=== PATIENT | female | born 1985 | race African-American/Black ===

== ENCOUNTER 2022-11-03 00:19 | Inpatient (IN) ==
[2022-11-03] MEDS ORDERED: LORazepam 2 MG/1 ML VIAL IV STA (00:31)
--- NOTE | 2022-11-03 00:41 | Emergency Department Note ---
History of Present Illness General Chief complaint: Hypertension Stated complaint: HIGH BLOOD PRESSURE Time Seen by Provider: 11/03/22 00:25 History of Present Illness Maximum Pain Intensity: 5 This 37-year-old female who has a history of hypertension that was just here yesterday presents back to the ER for worsening blood pressure headache blurry vision and chest pain tonight. Patient did just receive news that she had a family member . Patient denies localized weakness, numbness, tingling, difficulty ambulating. She is answering questions appropriately but slow. No alcohol use today per family. Home Medications Medication Instructions Recorded Confirmed Type chlorthalidone 25 mg tablet 25 mg PO DAILY 08/23/19 11/03/22 History irbesartan 75 mg tablet 75 mg PO DAILY 11/03/22 11/03/22 History Allergies Allergy/AdvReac Type Severity Reaction Status Date / Time shrimp Allergy Severe "SWELL UP" Verified 11/03/22 01:41 morphine Allergy Intermediate HIVES Verified 11/03/22 01:41 mushroom Allergy Intermediate HIVES Verified 11/03/22 01:41 Past Med/Surg History Medical History Hypertension Marijuana use Migraine headache Surgical History History of hysterectomy Social History Smoking Status: Never smoker Preferred Language: Guatemalan Feels Safe at Home: Yes Review of Systems A total of 10 systems reviewed and were otherwise negative Physical Exam Vital Signs Vital Signs - 24 hr 11/03/22 00:22 11/03/22 01:18 11/03/22 02:02 Temperature 36.3 C L Temperature Source Temporal Artery Scan Pulse Rate 68 Pulse Rate [Apical] 67 67 Respiratory Rate 20 16 16 Respiratory Effort / Characteristics Non-Labored Non-Labored Spontaneous Non-Labored Spontaneous Respiratory Depth Normal Normal Normal Respiratory Pattern Regular Regular Blood Pressure 194/128 H Blood Pressure [Right Arm] 139/98 127/80 Blood Pressure Mean 150 Blood Pressure Mean [Right Arm] 111 95 Pulse Oximetry 100 99 99 Oxygen Delivery Method Room Air Room Air Room Air Sepsis Recent Fever Within 48 Hours No Sepsis New/Unexplained Change in Mental Status N/A Sepsis Action Taken by Nursing No Action Required VITALS: Vitals are noted on the nurse's note and reviewed by myself. Vital signs hypertensive. GENERAL: Pleasant female who appears upset following commands, in no acute distress, nondiaphoretic, well-developed well-nourished. SKIN: The skin was without rashes, erythema, edema, or bruising. There is no tenting of the skin. Capillary reflex less than 2 seconds. HEAD: Normocephalic atraumatic. EARS: External auditory canals clear, tympanic membranes pearly briceño without erythema or effusion bilaterally. EYES: Pupils equal round and reactive to light and accommodation. Conjunctivae without injection, sclerae without icterus. Extraocular movements intact. NOSE: Patent, turbinates without inflammation or discharge. No sinus tenderness. MOUTH: Mucous membranes moist. Pharynx without erythema or exudate. Uvula midline. Airway patent. Tongue does not deviate. NECK: Supple without nuchal rigidity. No lymphadenopathy. No thyromegaly. Cervical spine is nontender. No JVD. HEART: Regular rate and rhythm LUNGS: Clear to auscultation bilaterally without wheezes, rales or rhonchi. No retractions or accessory muscle use. ABDOMEN: Positive bowel sounds x 4. Normal tympanic percussion. Soft, nontender, without masses or organomegaly. Doss sign negative. No guarding or rebound tenderness. No CVA tenderness MUSCULOSKELETAL: No muscle atrophy, erythema, or edema noted. NEURO: Patient was alert and oriented to person place and time. Normal sensation to light and sharp touch. Cranial nerves II through XII grossly in tact. No pronator drift. Cerebellar exam intact. No focal neurological deficits. Course Administered Medications Discontinued Medications Ioversol (Optiray 320 500ml) 112 ml IV ONCE ONE Stop: 11/03/22 01:11 Last Admin: 11/03/22 01:02 Dose: 112 ml Documented By: JAYME Lorazepam (Lorazepam 2 Mg/1 Ml Vial) 1 mg IV NOW STA Stop: 11/03/22 00:32 Last Admin: 11/03/22 01:30 Dose: 1 mg Documented By: MED Medical Decision Making Medical Records Attestation: I reviewed the patient's medical records. Home Medications Current Medication List: was personally reviewed by me Laboratory Data Attestation: I reviewed the patient's lab results. 11/03/22 00:40 11/03/22 00:40 Lab Results 11/03/22 11/03/22 11/03/22 Range/Units 00:40 00:40 00:40 WBC 7.60 (4.8-10.8) K/ul RBC 4.55 (4.20-5.40) M/uL Hgb 12.8 (12.0-16.0) g/dl POC Hgb (12.0-16.0) g/dl Hct 37.5 (37.0-47.0) % POC Hct (37-47) % MCV 82.4 (80.0-100.0) fL MCH 28.1 (25.0-34.0) pg MCHC 34.1 (32.0-36.0) g/dL RDW Std Deviation 40.7 (36.4-46.3) fL RDW Coeff of Peggy 13.6 (11.5-14.5) % Plt Count 324 (130-400) K/uL MPV 9.6 (9.4-12.4) fL Immature Gran % (Auto) 0.1 % Neut % (Auto) 38.4 % Lymph % (Auto) 52.8 % Weber % (Auto) 5.7 % Eos % (Auto) 2.5 % Baso % (Auto) 0.5 % Neut # (Auto) 2.92 (1.40-6.50) K/uL Lymph # (Auto) 4.01 H (1.2-3.4) K/uL Weber # (Auto) 0.43 (0.11-0.59) K/uL Eos # (Auto) 0.19 (0-0.50) K/uL Baso # (Auto) 0.04 (0-0.2) K/uL Immature Gran # (Auto) 0.01 (0.01-0.20) K/uL PT 10.3 (9.0-12.0) Seconds INR 1.0 (0.9-1.1) APTT 28.3 (21.0-31.0) Seconds PTT Ratio 1.0 POC Sodium (135-144) mmol/L Sodium 138 (136-145) mmol/L POC Potassium (3.3-5.0) mmol/L Potassium 3.5 (3.5-5.1) mmol/L POC Chloride (101-112) mmol/L Chloride 105 (98-107) mmol/L Carbon Dioxide 26 (21-32) mmol/L POC Total CO2 (24-31) mmol/L Anion Gap 7 (3-11) POC Anion Gap (16-25) mmol/L POC BUN (7-18) mg/dl BUN 10 (6-23) mg/dl Creatinine 0.82 (0.6-1.2) mg/dl POC Creatinine (0.6-1.3) mg/dl Est Cr Clr Drug Dosing 122.1 ml/min Est GFR ( Amer) 104.5 ml/min Est GFR (Non-Af Amer) 90.1 ml/min BUN/Creatinine Ratio 12.2 (10-20) Glucose 108 H (70-99(Fasting)) mg/dl POC Glucose (other) (70-99) mg/dl Calcium 9.4 (8.6-10.3) mg/dl POC Ioniz Calcium Ny (1.12-1.32) mmol/l Magnesium 1.9 (1.7-2.4) mg/dl Total Bilirubin 0.4 (0.2-1.0) mg/dl AST 29 (13-39) U/L ALT 25 (7-52) U/L Alkaline Phosphatase 65 (34-104) U/L Troponin I High Sens 4.2 (0-14) pg/ml Total Protein 8.4 H (6.0-8.3) gm/dl Albumin 4.4 (3.4-5.0) gm/dl Globulin 4.0 (2.5-4.0) gm/dl Albumin/Globulin Ratio 1.1 (0.9-2) HCG, Qual (Negative) SARS-CoV-2, RNA, NAAT (NEGATIVE) 11/03/22 11/03/22 11/03/22 Range/Units 00:40 00:50 01:20 WBC (4.8-10.8) K/ul RBC (4.20-5.40) M/uL Hgb (12.0-16.0) g/dl POC Hgb 13.3 (12.0-16.0) g/dl Hct (37.0-47.0) % POC Hct 39 (37-47) % MCV (80.0-100.0) fL MCH (25.0-34.0) pg MCHC (32.0-36.0) g/dL RDW Std Deviation (36.4-46.3) fL RDW Coeff of Peggy (11.5-14.5) % Plt Count (130-400) K/uL MPV (9.4-12.4) fL Immature Gran % (Auto) % Neut % (Auto) % Lymph % (Auto) % Weber % (Auto) % Eos % (Auto) % Baso % (Auto) % Neut # (Auto) (1.40-6.50) K/uL Lymph # (Auto) (1.2-3.4) K/uL Weber # (Auto) (0.11-0.59) K/uL Eos # (Auto) (0-0.50) K/uL Baso # (Auto) (0-0.2) K/uL Immature Gran # (Auto) (0.01-0.20) K/uL PT (9.0-12.0) Seconds INR (0.9-1.1) APTT (21.0-31.0) Seconds PTT Ratio POC Sodium 141 (135-144) mmol/L Sodium (136-145) mmol/L POC Potassium 3.5 (3.3-5.0) mmol/L Potassium (3.5-5.1) mmol/L POC Chloride 102 (101-112) mmol/L Chloride (98-107) mmol/L Carbon Dioxide (21-32) mmol/L POC Total CO2 25 (24-31) mmol/L Anion Gap (3-11) POC Anion Gap 18.0 (16-25) mmol/L POC BUN 9 (7-18) mg/dl BUN (6-23) mg/dl Creatinine (0.6-1.2) mg/dl POC Creatinine 0.8 (0.6-1.3) mg/dl Est Cr Clr Drug Dosing ml/min Est GFR ( Amer) ml/min Est GFR (Non-Af Amer) ml/min BUN/Creatinine Ratio (10-20) Glucose (70-99(Fasting)) mg/dl POC Glucose (other) 111 H (70-99) mg/dl Calcium (8.6-10.3) mg/dl POC Ioniz Calcium Ny 1.19 (1.12-1.32) mmol/l Magnesium (1.7-2.4) mg/dl Total Bilirubin (0.2-1.0) mg/dl AST (13-39) U/L ALT (7-52) U/L Alkaline Phosphatase (34-104) U/L Troponin I High Sens (0-14) pg/ml Total Protein (6.0-8.3) gm/dl Albumin (3.4-5.0) gm/dl Globulin (2.5-4.0) gm/dl Albumin/Globulin Ratio (0.9-2) HCG, Qual Negative (Negative) SARS-CoV-2, RNA, NAAT NEGATIVE (NEGATIVE) Imaging Data Attestation: I personally reviewed and interpreted this imaging study as follows: Radiologist's Impression: Head CT 11/03/22 00:26 Exam(s): CT HEAD Without Contrast EXAM: CT Head Without Intravenous Contrast CLINICAL HISTORY: Reason for exam: neuro deficit, acute stroke suspected. TECHNIQUE: Axial computed tomography images of the head/brain without intravenous contrast. CTDI is 78.27 mGy and DLP is 1094.81 mGy-cm. Automated exposure control was utilized for the study. A dose lowering technique was utilized adhering to the principles of ALARA. COMPARISON: No relevant prior studies available. FINDINGS: Brain: Unremarkable. No hemorrhage. No significant white matter disease. No edema. Ventricles: Unremarkable. No ventriculomegaly. Bones/joints: Unremarkable. No acute fracture. Soft tissues: Unremarkable. Sinuses: Unremarkable as visualized. No acute sinusitis. Mastoid air cells: Unremarkable as visualized. No mastoid effusion. IMPRESSION: Normal head/brain CT. Electronically signed by: Akhil Mack MD 11/03/22 01:27 AM Head CTA 11/03/22 00:26 Exam(s): CTA HEAD With Contrast EXAM: CT Angiography Head With Intravenous Contrast CLINICAL HISTORY: Reason for exam: neuro deficit, acute stroke suspected. TECHNIQUE: Axial computed tomographic angiography images of the head with intravenous contrast. CTDI is 78.27 mGy and DLP is 1094.81 mGy-cm. Automated exposure control was utilized for the study. A dose lowering technique was utilized adhering to the principles of ALARA. MIP reconstructed images were created and reviewed. CONTRAST: Contrast must be dictated COMPARISON: No relevant prior studies available. FINDINGS: Right internal carotid artery: No acute findings. Intracranial segment is patent with no significant stenosis. No aneurysm. Right anterior cerebral artery: Unremarkable. No occlusion or significant stenosis. No aneurysm. Right middle cerebral artery: Unremarkable. No occlusion or significant stenosis. No aneurysm. Right posterior cerebral artery: Unremarkable. No occlusion or significant stenosis. No aneurysm. Right vertebral artery: Unremarkable as visualized. Left internal carotid artery: No acute findings. Intracranial segment is patent with no significant stenosis. No aneurysm. Left anterior cerebral artery: Unremarkable. No occlusion or significant stenosis. No aneurysm. Left middle cerebral artery: Unremarkable. No occlusion or significant stenosis. No aneurysm. Left posterior cerebral artery: Unremarkable. No occlusion or significant stenosis. No aneurysm. Left vertebral artery: Unremarkable as visualized. Basilar artery: Unremarkable. No occlusion or significant stenosis. No aneurysm. IMPRESSION: Normal head CTA. Electronically signed by: Akhil Mack MD 11/03/22 01:27 AM Neck CTA 11/03/22 00:26 Exam(s): CTA NECK With Contrast EXAM: CT Angiography Neck With Intravenous Contrast CLINICAL HISTORY: Reason for exam: neuro deficit, acute stroke suspected. TECHNIQUE: Routine carotid CT angiography protocol was performed with intravenous contrast. NASCET criteria using the distal ICAs for comparison were used for evaluation of stenoses. CTDI is 78.27 mGy and DLP is 1094.81 mGy-cm. Automated exposure control was utilized for the study. A dose lowering technique was utilized adhering to the principles of ALARA. MIP reconstructed images were created and reviewed. CONTRAST: Contrast must be dictated COMPARISON: None. FINDINGS: VASCULATURE: Right common carotid artery: Unremarkable. No occlusion or significant stenosis. No dissection. Right internal carotid artery: Unremarkable. Extracranial segment is patent with no occlusion or significant stenosis. No dissection. Right external carotid artery: Unremarkable. No occlusion. Right vertebral artery: Unremarkable. No occlusion or significant stenosis. No dissection. Left common carotid artery: Unremarkable. No occlusion or significant stenosis. No dissection. Left internal carotid artery: Unremarkable. Extracranial segment is patent with no occlusion or significant stenosis. No dissection. Left external carotid artery: Unremarkable. No occlusion. Left vertebral artery: Unremarkable. No occlusion or significant stenosis. No dissection. NECK: Bones/joints: Unremarkable. Soft tissues: Unremarkable. Lung apices: Clear. CAROTID STENOSIS REFERENCE USING NASCET CRITERIA: % ICA stenosis = (1 - narrowest ICA diameter/diameter of distal cervical ICA) x 100. Mild - <50% stenosis. Moderate - 50-69% stenosis. Severe - 70-94% stenosis. Near occlusion - 95-99% stenosis. Occluded - 100% stenosis. IMPRESSION: Negative CTA neck. Electronically signed by: Akhil Mack MD 11/03/22 01:29 AM MDM Narrative Prior records/ancillary studies reviewed regarding the history above. Triage Nursing notes reviewed. Additional history obtained from family The patient's history was concerning for hypertension. Differential diagnosis: Etiologies such as benign hypertension, hypertensive emergency, cardiovascular pathology, pheochromocytoma, electrolyte abnormality, renal disease, endorgan damage, as well as others were entertained. Physical examination: As above. No signs of end organ damage. ER treatment provided: An order was placed for continuous cardiac monitoring. The monitor shows a rate of 60-100 with a sinus rhythm per my interpretation. Ativan was ordered and patient was sent down for CTA for rule out stroke On reassessment the patient felt better. Diagnostic interpretation by me: The electrocardiogram was ordered for HTN ECG: Normal sinus, normal intervals, no acute ST-T wave changes. Impression normal sinus rhythm independently interpreted by myself I think arrhythmia is unlikely. EKG shows normal sinus rhythm with no interval abnormalities such as QT prolongation or WPW. There are no findings to suggest Brugada syndrome. Cardiac monitoring in the emergency department reveals no tachycardic or bradycardic dysrhythmia. Hypertrophic cardiomyopathy was considered but there are no clear historical elements pointing toward this. EKG is not suggestive. The QRS voltage is not extremely large and there are no suggestive Q waves. The labs Independently Interpreted by myself revealed negative troponin, no worrisome leukocytosis, negative hCG Imaging studies: Chest x-ray with no acute consolidation, pneumothorax or free air per my independent rotation CTA and CTs of the head and neck were negative for stroke per my independent rotation and read by radiology and reviewed as above. HEART SCORE: Hx: high/mod/low suspicion: 0 ECG: ST depression/nonspecific changes/normal: 0 Age: Greater than 65/45-64/less than 45: 0 Risk factors: (Hypertension, hyperlipidemia, diabetes, coronary disease, tobacco use, cocaine use): 2 Troponin: Greater than 2 times normal limits/1-2 times normal limits/normal: 0 Total: 2 Consultation: A consultation was placed with the hospitalist. The case was discussed and diagnostics were reviewed. The patient was evaluated in the ER for further treatment. This appears to be consistent with hypertensive urgency with possible TIA. Symptoms resolved once her blood pressure was controlled. Patient has been under more stress lately. This is her second visit in 2 days for the same complaint. CTs were negative for acute findings. Stable labs. She was neurovascularly and neurologically intact. Medicines consulted and case was discussed. She will be admitted to the medical service for further evaluation work-up for uncontrolled high blood pressure and TIA symptoms. By the evaluation outlined above emergent etiologies such as hypertensive emergency, pheochromocytoma, endorgan damage, cardiac ischemia, aortic dissection, pulmonary embolism, pneumonia, pneumothorax, infections, gastrointestinal, as well as others were deemed relatively unlikely. The pt informed about the findings as listed above. All questions were answered and pleased with the treatment. The chart was completed utilizing [employer] Speech voice recognition software. Grammatical errors, random word insertions, pronoun errors, and incomplete sentences are an occassional consequence of this system due to software limitations, ambient noise, and hardware issues. Any formal questions or con cerns about the content, text, or information contained within the body of this dictation should be directly addressed to the physician billing assistant for clarification. Impression & Plan Hypertensive urgency, Chest pain, Blurred vision Discharge Plan Visit Data Chief Complaint: Hypertension Stated Complaint: HIGH BLOOD PRESSURE ED Provider: Laly Warner ED Midlevel Provider: Fatemeh Mack Discharge Problem: Hypertensive urgency, Chest pain, Blurred vision Patient Disposition: Admitted As Inpatient Condition: Good Forms Stand Alone Forms: adRise Prescriptions Prescriptions: No Action chlorthalidone 25 mg tablet 25 mg PO DAILY irbesartan 75 mg tablet 75 mg PO DAILY Referrals Referrals: Linnea Cortes MD [Primary Care Provider] -
[2022-11-03 01:03] LABS: iSTAT Creatinine 0.8 mg/dl (0.6-1.3); iSTAT Hemoglobin 13.3 g/dl (12.0-16.0); iSTAT Ionized Calcium 1.19 mmol/l (1.12-1.32); iSTAT Potassium 3.5 mmol/L (3.3-5.0)
[2022-11-03] MEDS ORDERED: OPTIRAY 320 500ml IV ONE (01:10)
[2022-11-03 01:13] LABS: Hematocrit (blood only) 37.5 % (37.0-47.0); Hemoglobin 12.8 g/dl (12.0-16.0); Mean Corpuscular Hemoglobin 28.1 pg (25.0-34.0); Mean Corpuscular Hgb Conc 34.1 g/dL (32.0-36.0); Mean Corpuscular Volume 82.4 fL (80.0-100.0); Mean Platelet Volume 9.6 fL (9.4-12.4); Platelet Count 324 K/uL (130-400); RDW Coefficient of Variation 13.6 % (11.5-14.5); RDW Standard Deviation 40.7 fL (36.4-46.3); Red Blood Count 4.55 M/uL (4.20-5.40)
[2022-11-03 01:17] LABS: Pregnancy Test, Serum Negative (Negative)
[2022-11-03 01:21] LABS: Albumin Globulin Ratio 1.1 (0.9-2); Albumin Level 4.4 gm/dl (3.4-5.0); BUN Creatinine Ratio 12.2 (10-20); Bilirubin,Total 0.4 mg/dl (0.2-1.0); Calcium 9.4 mg/dl (8.6-10.3); Creatinine Clr Calc Pharmacy 122.1 ml/min; Est GFR (African American) 104.5 ml/min; Est GFR (Non-African American) 90.1 ml/min; Magnesium 1.9 mg/dl (1.7-2.4); Potassium 3.5 mmol/L (3.5-5.1); Total Protein 8.4 gm/dl (6.0-8.3)
[2022-11-03 01:28] LABS: Troponin I High Sensitivity 4.2 pg/ml (0-14)
--- NOTE | 2022-11-03 01:28 | CT Scan Report ---
Exam(s): CT HEAD Without Contrast EXAM: CT Head Without Intravenous Contrast CLINICAL HISTORY: Reason for exam: neuro deficit, acute stroke suspected. TECHNIQUE: Axial computed tomography images of the head/brain without intravenous contrast. CTDI is 78.27 mGy and DLP is 1094.81 mGy-cm. Automated exposure control was utilized for the study. A dose lowering technique was utilized adhering to the principles of ALARA. COMPARISON: No relevant prior studies available. FINDINGS: Brain: Unremarkable. No hemorrhage. No significant white matter disease. No edema. Ventricles: Unremarkable. No ventriculomegaly. Bones/joints: Unremarkable. No acute fracture. Soft tissues: Unremarkable. Sinuses: Unremarkable as visualized. No acute sinusitis. Mastoid air cells: Unremarkable as visualized. No mastoid effusion. IMPRESSION: Normal head/brain CT. Electronically signed by: Akhil Mack MD 11/03/22 01:27 AM
--- NOTE | 2022-11-03 01:28 | CT Scan Report ---
Exam(s): CTA HEAD With Contrast EXAM: CT Angiography Head With Intravenous Contrast CLINICAL HISTORY: Reason for exam: neuro deficit, acute stroke suspected. TECHNIQUE: Axial computed tomographic angiography images of the head with intravenous contrast. CTDI is 78.27 mGy and DLP is 1094.81 mGy-cm. Automated exposure control was utilized for the study. A dose lowering technique was utilized adhering to the principles of ALARA. MIP reconstructed images were created and reviewed. CONTRAST: Contrast must be dictated COMPARISON: No relevant prior studies available. FINDINGS: Right internal carotid artery: No acute findings. Intracranial segment is patent with no significant stenosis. No aneurysm. Right anterior cerebral artery: Unremarkable. No occlusion or significant stenosis. No aneurysm. Right middle cerebral artery: Unremarkable. No occlusion or significant stenosis. No aneurysm. Right posterior cerebral artery: Unremarkable. No occlusion or significant stenosis. No aneurysm. Right vertebral artery: Unremarkable as visualized. Left internal carotid artery: No acute findings. Intracranial segment is patent with no significant stenosis. No aneurysm. Left anterior cerebral artery: Unremarkable. No occlusion or significant stenosis. No aneurysm. Left middle cerebral artery: Unremarkable. No occlusion or significant stenosis. No aneurysm. Left posterior cerebral artery: Unremarkable. No occlusion or significant stenosis. No aneurysm. Left vertebral artery: Unremarkable as visualized. Basilar artery: Unremarkable. No occlusion or significant stenosis. No aneurysm. IMPRESSION: Normal head CTA. Electronically signed by: Akhil Mack MD 11/03/22 01:27 AM
--- NOTE | 2022-11-03 01:30 | CT Scan Report ---
Exam(s): CTA NECK With Contrast EXAM: CT Angiography Neck With Intravenous Contrast CLINICAL HISTORY: Reason for exam: neuro deficit, acute stroke suspected. TECHNIQUE: Routine carotid CT angiography protocol was performed with intravenous contrast. NASCET criteria using the distal ICAs for comparison were used for evaluation of stenoses. CTDI is 78.27 mGy and DLP is 1094.81 mGy-cm. Automated exposure control was utilized for the study. A dose lowering technique was utilized adhering to the principles of ALARA. MIP reconstructed images were created and reviewed. CONTRAST: Contrast must be dictated COMPARISON: None. FINDINGS: VASCULATURE: Right common carotid artery: Unremarkable. No occlusion or significant stenosis. No dissection. Right internal carotid artery: Unremarkable. Extracranial segment is patent with no occlusion or significant stenosis. No dissection. Right external carotid artery: Unremarkable. No occlusion. Right vertebral artery: Unremarkable. No occlusion or significant stenosis. No dissection. Left common carotid artery: Unremarkable. No occlusion or significant stenosis. No dissection. Left internal carotid artery: Unremarkable. Extracranial segment is patent with no occlusion or significant stenosis. No dissection. Left external carotid artery: Unremarkable. No occlusion. Left vertebral artery: Unremarkable. No occlusion or significant stenosis. No dissection. NECK: Bones/joints: Unremarkable. Soft tissues: Unremarkable. Lung apices: Clear. CAROTID STENOSIS REFERENCE USING NASCET CRITERIA: % ICA stenosis = (1 - narrowest ICA diameter/diameter of distal cervical ICA) x 100. Mild - <50% stenosis. Moderate - 50-69% stenosis. Severe - 70-94% stenosis. Near occlusion - 95-99% stenosis. Occluded - 100% stenosis. IMPRESSION: Negative CTA neck. Electronically signed by: Akhil Mack MD 11/03/22 01:29 AM
[2022-11-03 01:38] LABS: Basophils # (auto) 0.04 K/uL (0-0.2); Basophils % (auto) 0.5 %; Eosinophils # (auto) 0.19 K/uL (0-0.50); Eosinophils % (auto) 2.5 %; Immature Granulocytes # (auto) 0.01 K/uL (0.01-0.20); Immature Granulocytes % (auto) 0.1 %; Lymphocytes # (auto) 4.01 K/uL (1.2-3.4); Lymphocytes % (auto) 52.8 %; Monocytes # (auto) 0.43 K/uL (0.11-0.59); Monocytes % (auto) 5.7 %; Neutrophils # (auto) 2.92 K/uL (1.40-6.50); Neutrophils % (auto) 38.4 %
[2022-11-03 01:45] LABS: Partial Thromboplastin Time 28.3 Seconds (21.0-31.0); Prothrombin Time 10.3 Seconds (9.0-12.0)
--- NOTE | 2022-11-03 05:37 | History and Physical Report ---
DATE OF ADMISSION: 11/03/2022. CHIEF COMPLAINT: Elevated blood pressure, chest pain and dizziness. HISTORY OF PRESENT ILLNESS: This is a 37-year-old female with past medical history significant for type 2 diabetes, not on any medications, history of polycystic ovarian syndrome, history of pelvic congestion syndrome, hypertension, gastritis, vitamin D deficiency, recurrent endometriosis, history of migraines, generalized anxiety disorder, presents with elevated blood pressure. The patient was in the ER on 11/01/2022 because she missed her medications for 1 week and she got refilled, but her blood pressure was running high. In the ER, she was given labetalol and advised to follow the family doctor as she restarted her home medications.Again comes back today with worsening blood pressure, some blurred vision, some chest pain and question of some slurred speech.and seems she also received a news that one of family members .in the ER, she was given a dose of Ativan. Currently, blood pressure is better, slow to answer, but answering appropriately. Currently, denies any headache. Still has some dizziness and nausea has improved. Chest pain is improved. No cough, no fevers, no difficulty swallowing as per the patient.Patient denies any slurred speech. No shortness of breath, no abdominal pain. Normal bowel and bladder movements. She says she has some swelling in the legs, going on for the last 2-3 days. ALLERGIES: SHRIMP, MORPHINE, MUSHROOM. PAST MEDICAL HISTORY: As mentioned above. PAST SURGICAL HISTORY: Colonoscopy, dental surgery, EGD with biopsy, laparoscopic surgical lysis of adhesions, partial hysterectomy, appendectomy. MEDICATIONS: The patient is on chlorthalidone 25 mg p.o. daily, irbesartan 75 mg p.o. daily. FAMILY HISTORY: Significant for mother has cervical cancer sister has cervical cancer, half sister has lupus. SOCIAL HISTORY: , no smoking. Alcohol occasional. No drug use. REVIEW OF SYSTEMS: As per HPI. Rest of review of systems is negative. PHYSICAL EXAMINATION: GENERAL: The patient is of moderate build, not in acute distress. VITAL SIGNS: Temperature 36.3, pulse 67, respiratory rate 16, blood pressure when she came in, it was like 194/120, currently 127/80, oxygen 99% on room air. HEENT: Pupils equal, round and reactive to light. Oral mucosa moist. NECK: No JVD. No neck masses. CARDIOVASCULAR: S1 and S2 heard. Regular rate and rhythm. No murmur, no gallop. RESPIRATORY SYSTEM: Normal AP diameter. No accessory muscle use. No wheezing, no crackles. ABDOMEN: Soft, bowel sounds present, nontender, no distention. CENTRAL NERVOUS SYSTEM: Alert and oriented. Speech is clear. Insight is okay. Obeys simple commands. Power 5/5 in all extremities. EXTREMITIES: Pedal edema present. No erythema seen. LABORATORY DATA: WBC 7.6, hemoglobin 12.8, hematocrit 37.5, platelets 324. PT 10.3, INR 1, APTT 28.3. Sodium 134, potassium 3.5, chloride 105, CO2 26, BUN 10, creatinine 0.8, serum glucose 108, calcium 9.4, magnesium 1.9, total bilirubin 0.4, AST 29, ALT 25, alkaline phosphatase 65. Troponin I high sensitivity 4.2. HCG qualitative negative. SARS-CoV-2 rapid test negative. IMAGING DATA: Chest x-ray, no acute findings seen. CTA of the head and neck unremarkable. CTA of the head without contrast was unremarkable. EKG showing normal sinus rhythm, rate of 62, no significant change was found. ASSESSMENT AND PLAN: This is a 37-year-old female presents with hypertensive urgency and chest pain, questionable stroke-like symptoms. 1. Hypertensive urgency. On chlorthalidone and irbesartan. Was in the ER yesterday because it took one week to refill her medications was given labetalol and was discharged to f/w with pcp.. Also, looks like she has received news on of her family members . CAme back with dizzy, chest pain questionable slurred speech and elevated BP. BP improved after Ativan.. We will monitor in the hospital. Continue his home medications and IV labetalol p.r.n. MAy need to follow potassium levels as patient on chlorthalidone. 2. Chest pain, currently resolved, probably from hypertensive urgency. We will follow serial enzymes, echocardiogram, and consult Cardiology for chest pain and hypertensive urgency. 3. Dizziness and some questionable slurred speech, which the patient denies currently denies any slured speech. ER did stroke workup with CTA of the head and neck and CT of the head which were unremarkable.Will complete workup with MRI scan. 4. Lower extremity edema. Says going on for 2-3 days. Patient restarted chlorthalidone. will follow echo. will get lower ext Doppler. 4. Deep venous thrombosis prophylaxis: Sequential compression devices for now. DISPOSITION: Closely monitor in tele floor. Level 1 full code. Expect to discharge home and follow with family doctor. Job ID: [id number] [facility] [place] [facility]
[2022-11-03] MEDS ORDERED: ACETAMINOPHEN 325 MG TAB PO PRN (05:47)
[2022-11-03] MEDS ORDERED: POLYETHYLENE (MIRALAX) 17 GM PACK PO PRN (05:47)
[2022-11-03] MEDS ORDERED: LABETALOL HCL IV 5 MG/ML 20ML IV PRN (05:47)
[2022-11-03] MEDS ORDERED: NITROGLYCERIN SL 0.4 MG/TAB TAB SL PRN (05:47)
[2022-11-03] MEDS ORDERED: SODIUM CHLORIDE 0.9% 1000ML 1,000 ML IV SCH (05:47)
[2022-11-03] MEDS ORDERED: ONDANSETRON INJ 2 MG/ML 2 ML VIAL IV PRN (05:47)
[2022-11-03 07:11] LABS: Basophils # (auto) 0.04 K/uL (0-0.2); Basophils % (auto) 0.7 %; Eosinophils # (auto) 0.18 K/uL (0-0.50); Eosinophils % (auto) 3.2 %; Hemoglobin 11.5 g/dl (12.0-16.0); Immature Granulocytes # (auto) 0.01 K/uL (0.01-0.20); Immature Granulocytes % (auto) 0.2 %; Lymphocytes # (auto) 2.58 K/uL (1.2-3.4); Lymphocytes % (auto) 46.6 %; Mean Corpuscular Hemoglobin 27.9 pg (25.0-34.0); Mean Corpuscular Hgb Conc 33.8 g/dL (32.0-36.0); Mean Corpuscular Volume 82.5 fL (80.0-100.0); Mean Platelet Volume 9.4 fL (9.4-12.4); Monocytes # (auto) 0.39 K/uL (0.11-0.59); Neutrophils # (auto) 2.34 K/uL (1.40-6.50); Neutrophils % (auto) 42.3 %; Platelet Count 279 K/uL (130-400); RDW Coefficient of Variation 13.6 % (11.5-14.5); RDW Standard Deviation 41.1 fL (36.4-46.3); Red Blood Count 4.12 M/uL (4.20-5.40); White Blood Count 5.54 K/ul (4.8-10.8)
[2022-11-03 07:21] LABS: BUN Creatinine Ratio 12.7 (10-20); Calcium 8.8 mg/dl (8.6-10.3); Creatinine Clr Calc Pharmacy 120.5 ml/min; Est GFR (African American) 109.3 ml/min; Est GFR (Non-African American) 94.3 ml/min; Magnesium 1.8 mg/dl (1.7-2.4); Potassium 3.4 mmol/L (3.5-5.1)
[2022-11-03 07:28] LABS: Troponin I High Sensitivity 3.9 pg/ml (0-14)
[2022-11-03] MEDS ORDERED: POTASSIUM CHLORIDE CRTAB 20 MEQ TABCR PO STA (08:32)
--- NOTE | 2022-11-03 08:43 | Electrocardiogram Report ---
Test Reason : Blood Pressure : / mmHG Vent. Rate : 062 BPM Atrial Rate : 062 BPM P-R Int : 192 ms QRS Dur : 082 ms QT Int : 436 ms P-R-T Axes : 053 003 035 degrees QTc Int : 442 ms Normal sinus rhythm Normal ECG When compared with ECG of 01-NOV-2022 12:11, No significant change was found Confirmed by Bar Jiménez ([id number]) on 11/03/2022 8:42:51 AM Referred By: REFERRED SELF Confirmed By:Bar Jiménez
[2022-11-03] MEDS: CHLORTHALIDONE 25 MG TAB PO SCH (08:44)
[2022-11-03] MEDS: LOSARTAN POTASSIUM 25 MG TAB PO SCH (08:44)
--- NOTE | 2022-11-03 09:51 | Ultrasound Report ---
US venous doppler LE BI CLINICAL HISTORY: lower ext edema. DVT? TECHNIQUE: Bilateral lower extremity real-time compression venous ultrasound with Color Doppler imagi ng. Utilizing real-time ultrasonic imaging multiple real time high-resolution ultrasonic images with compression and noncompression maneuvers of the deep venous system in addition to color doppler imagi ng were performed from the common femoral vein through the proximal calf veins. COMPARISON: None available at the time of this dictation. FINDINGS/IMPRESSION: Currently there is normal compressibility of the deep venous system from the common femoral vein thro ugh the proximal calf veins. No superficial venous thrombosis is identified. ACT 112: Negative or not required by law. Electronically signed by: Glenn Loo M.D. 11/03/2022 9:49 AM
[2022-11-03] MEDS ORDERED: GADOBUTROL 65ML VIAL IV ONE (10:15)
--- NOTE | 2022-11-03 10:28 | XRay Report ---
XR chest 1V portable CLINICAL HISTORY: cp TECHNIQUE: Single frontal radiograph of the chest was obtained. Comparison: Comparison is made to chest radiograph 11/01/2022 FINDINGS: No lines and tubes are seen. The cardiomediastinal silhouette is normal. The lungs are clear. No evid ence of pleural effusion or pneumothorax. IMPRESSION: No acute chest disease. ACT 112: Negative or not required by law. Electronically signed by: Glenn Loo M.D. 11/03/2022 10:25 AM
--- NOTE | 2022-11-03 11:53 | Magnetic Resonance Report ---
MR brain wo/w con CLINICAL HISTORY: CVA? TECHNIQUE: Multiplanar and multisequence MR images of the brain were obtained prior to and following administration of gadolinium contrast. Comparison: Comparison is made to CTA head and neck for 223 FINDINGS: No abnormal restricted diffusion is identified. The white matter is unremarkable. The ventricular sys tem is normal in appearance. No mass or abnormal enhancement is seen. There is no mass effect or midl ine shift. There is no evidence of acute intraparenchymal hemorrhage. No extra axial fluid collection s are seen. The corpus callosum, pituitary gland, and cerebellar tonsils appear grossly unremarkable. Flow voids of the major intracranial arterial vessels are identified. The imaged portions of the para nasal sinuses, mastoid air cells, and orbits are unremarkable. IMPRESSION: No acute abnormalities. ACT 112: Negative or not required by law. Electronically signed by: Glenn Loo M.D. 11/03/2022 11:52 AM
--- NOTE | 2022-11-03 13:43 | Hospitalist Progress Note ---
Date of Service November 03, 2022 Assessment & Plan (1) Hypertensive urgency: Plan: History of high blood pressure and was admitted with very high blood pressure with symptoms of headache, dizziness and chest pain Questionable strokelike symptoms-resolved Blood pressure has been normalized Relevant investigations including CTA of the head and neck, CT of the head and MRI of the head are unremarkable Symptomatically much improved but he still has some dizziness We will continue current management and ask for PT and OT evaluation prior to discharge tomorrow Blood pressure is reasonably controlled The dose of losartan has been increased Discharge home this afternoon (2) Chest pain: Plan: Has a chest pain Without any EKG changes Troponins are unremarkable Discussed with worship director and the consultations was canceled No chest pain and/or palpitation (3) Dizziness: Plan: Continues to have dizziness We will get PT and OT evaluation prior to discharge tomorrow Bilateral leg edema No evidence of DVT Admission and Anticipated Discharge Date Admission Date: November 03, 2022 Subjective 11/03/2022 The patient was seen and examined in telemetry unit She was admitted early this morning with hypertensive urgency with chest pain and dizziness Has been feeling much better except dizziness and denies any more chest pain and the blood pressure is controlled 11/04/2022 The patient was seen and examined in telemetry unit She has been feeling much better and the dizziness is almost gone Her blood pressure remains on the upper side but has improved She will be going home this afternoon Review of Systems Review of Systems: All systems reviewed and are unremarkable except as noted below Neurologic: Minimal dizziness without any other symptoms Physical Exam Physical Exam: Lying in bed comfortably Constitutional: well developed, well nourished, + ill appearing and + obese Eyes: PERRL, conjunctivae normal, anicteric sclerae ENMT: external ear and nose normal, oropharynx normal Neck: trachea midline, no thyromegaly Respiratory: no respiratory distress Auscultation: lungs clear to auscultation bilaterally Cardiovascular: Rate/Rhythm: regular rate and regular rhythm; not tachycardic Heart Sounds: normal S1 and normal S2; no murmur Extremities: + edema (Trace edema bilaterally) Gastrointestinal (Abdomen): Inspection/Auscultation: normal bowel sounds; abdomen not distended Percussion/Palpation: abdomen soft; abdomen nontender Musculoskeletal: No acute arthritis involving any joint Neurologic: normal touch/pain/proprioception and moves all extremities; no focal motor deficits Alert, awake and oriented x3 no focal sensory or no motor deficit appreciated Psychiatric: A+Ox3, euthymic affect Lymphatic: no cervical or axillary lymphadenopathy Results & Data Results & Data Vital Signs (Past 12 Hours) Vital Signs Temp Pulse Pulse Resp BP BP Pulse Ox 11/03/22 11:16 36.6 C 62 20 121/75 100 11/03/22 07:19 72 11/03/22 07:03 36.6 C 66 20 114/75 99 11/03/22 05:44 36.7 C 75 16 145/79 H 98 11/03/22 05:17 67 118/70 96 11/03/22 02:02 67 16 127/80 99 O2 Del Method 11/03/22 11:16 Room Air 11/03/22 07:19 11/03/22 07:03 Room Air 11/03/22 05:44 Room Air 11/03/22 05:17 Room Air 11/03/22 02:02 Room Air Laboratory Results Short CBC 11/03/22 11/03/22 Range/Units 00:40 06:45 WBC 7.60 5.54 (4.8-10.8) K/ul Hgb 12.8 11.5 L (12.0-16.0) g/dl Hct 37.5 34.0 L (37.0-47.0) % Plt Count 324 279 (130-400) K/uL BMP 11/03/22 11/03/22 00:40 06:45 Sodium 138 138 Potassium 3.5 3.4 L Chloride 105 106 Carbon Dioxide 26 27 BUN 10 10 Creatinine 0.82 0.79 Glucose 108 H 121 H Calcium 9.4 8.8 Liver Function 11/03/22 Range/Units 00:40 Total Bilirubin 0.4 (0.2-1.0) mg/dl AST 29 (13-39) U/L ALT 25 (7-52) U/L Alkaline Phosphatase 65 (34-104) U/L Albumin 4.4 (3.4-5.0) gm/dl Short CBC 11/04/22 Range/Units 05:16 WBC 5.15 (4.8-10.8) K/ul Hgb 11.9 L (12.0-16.0) g/dl Hct 36.3 L (37.0-47.0) % Plt Count 274 (130-400) K/uL BMP 11/04/22 05:16 Sodium 137 Potassium 3.5 Chloride 104 Carbon Dioxide 27 BUN 11 Creatinine 0.74 Glucose 105 H Calcium 9.1 Medications Administered Current Inpatient Medications Acetaminophen (Acetaminophen 325 Mg Tab) 650 mg PO Q4H PRN PRN Reason: Pain or Fever Stop: 12/03/22 05:46 Chlorthalidone (Chlorthalidone 25 Mg Tab) 25 mg PO DAILY [facility] Stop: 12/03/22 08:59 Last Admin: 11/03/22 08:44 Dose: 25 mg Sodium Chloride (Nss 1000ml) 1,000 mls @ 75 mls/hr IV .[id number] [facility] Stop: 11/03/22 19:06 Last Admin: 11/03/22 06:06 Dose: 75 mls/hr Labetalol HCl (Labetalol Hcl Iv 5 Mg/Ml 20ml) 10 mg IV Q4H PRN PRN Reason: Hypertension Stop: 12/03/22 05:46 Losartan Potassium (Losartan Potassium 25 Mg Tab) 25 mg PO DAILY [facility] Stop: 12/03/22 08:59 Last Admin: 11/03/22 08:44 Dose: 25 mg Nitroglycerin (Nitroglycerin Sl 0.4 Mg/Tab Tab) 0.4 mg SL UD PRN PRN Reason: Chest Pain Stop: 12/03/22 05:46 Ondansetron HCl (Ondansetron Inj 2 Mg/Ml 2 Ml Vial) 4 mg IV Q6H PRN PRN Reason: Nausea Stop: 12/03/22 05:46 Polyethylene Glycol (Polyethylene (Miralax) 17 Gm Pack) 17 gm PO DAILY PRN PRN Reason: Constipation Stop: 12/03/22 05:46 11/04/2022 Current Inpatient Medications Acetaminophen (Acetaminophen 325 Mg Tab) 650 mg PO Q4H PRN PRN Reason: Pain or Fever Stop: 12/03/22 05:46 Last Admin: 11/04/22 07:50 Dose: 650 mg Chlorthalidone (Chlorthalidone 25 Mg Tab) 25 mg PO DAILY [facility] Stop: 12/03/22 08:59 Last Admin: 11/04/22 07:49 Dose: 25 mg Labetalol HCl (Labetalol Hcl Iv 5 Mg/Ml 20ml) 10 mg IV Q4H PRN PRN Reason: Hypertension Stop: 12/03/22 05:46 Losartan Potassium (Losartan Potassium 50 Mg Tab) 50 mg PO DAILY [facility] Stop: 12/05/22 08:59 Nitroglycerin (Nitroglycerin Sl 0.4 Mg/Tab Tab) 0.4 mg SL UD PRN PRN Reason: Chest Pain Stop: 12/03/22 05:46 Ondansetron HCl (Ondansetron Inj 2 Mg/Ml 2 Ml Vial) 4 mg IV Q6H PRN PRN Reason: Nausea Stop: 12/03/22 05:46 Polyethylene Glycol (Polyethylene (Miralax) 17 Gm Pack) 17 gm PO DAILY PRN PRN Reason: Constipation Stop: 12/03/22 05:46
[2022-11-04 06:48] LABS: Hematocrit (blood only) 36.3 % (37.0-47.0); Hemoglobin 11.9 g/dl (12.0-16.0); Mean Corpuscular Hemoglobin 27.6 pg (25.0-34.0); Mean Corpuscular Hgb Conc 32.8 g/dL (32.0-36.0); Mean Corpuscular Volume 84.2 fL (80.0-100.0); Mean Platelet Volume 9.7 fL (9.4-12.4); Platelet Count 274 K/uL (130-400); RDW Coefficient of Variation 13.3 % (11.5-14.5); Red Blood Count 4.31 M/uL (4.20-5.40); White Blood Count 5.15 K/ul (4.8-10.8)
[2022-11-04 06:54] LABS: BUN Creatinine Ratio 14.9 (10-20); Calcium 9.1 mg/dl (8.6-10.3); Creatinine Clr Calc Pharmacy 127.9 ml/min; Est GFR (African American) 118.3 ml/min; Est GFR (Non-African American) 102.1 ml/min; Magnesium 1.8 mg/dl (1.7-2.4); Potassium 3.5 mmol/L (3.5-5.1)
[2022-11-04 07:22] LABS: Basophils # (auto) 0.04 K/uL (0-0.2); Basophils % (auto) 0.8 %; Eosinophils # (auto) 0.21 K/uL (0-0.50); Eosinophils % (auto) 4.1 %; Immature Granulocytes # (auto) 0.02 K/uL (0.01-0.20); Immature Granulocytes % (auto) 0.4 %; Lymphocytes % (auto) 50.5 %; Monocytes # (auto) 0.33 K/uL (0.11-0.59); Monocytes % (auto) 6.4 %; Neutrophils # (auto) 1.95 K/uL (1.40-6.50); Neutrophils % (auto) 37.8 %
[2022-11-04] MEDS: CHLORTHALIDONE 25 MG TAB PO SCH (07:49)
[2022-11-04] MEDS: LOSARTAN POTASSIUM 25 MG TAB PO SCH (07:49)
[2022-11-04] MEDS ORDERED: LOSARTAN POTASSIUM 25 MG TAB PO STA (12:30)
--- NOTE | 2022-11-04 13:20 | Electrocardiogram Report ---
Test Reason : Blood Pressure : / mmHG Vent. Rate : 067 BPM Atrial Rate : 067 BPM P-R Int : 198 ms QRS Dur : 082 ms QT Int : 418 ms P-R-T Axes : 049 -04 027 degrees QTc Int : 441 ms Normal sinus rhythm Normal ECG When compared with ECG of 03-NOV-2022 00:40, No significant change was found Confirmed by Bar Jiménez ([id number]) on 11/04/2022 1:20:10 PM Referred By: REFERRED SELF Confirmed By:Bar Jiménez
--- NOTE | 2022-11-04 17:27 | Discharge Summary ---
Date of Service November 04, 2022 Admission HPI Per Admitting Provider DICTATED BY:Adrian Elkins MD DATE OF ADMISSION: 11/03/2022. CHIEF COMPLAINT: Elevated blood pressure, chest pain and dizziness. HISTORY OF PRESENT ILLNESS: This is a 37-year-old female with past medical history significant for type 2 diabetes, not on any medications, history of polycystic ovarian syndrome, history of pelvic congestion syndrome, hypertension, gastritis, vitamin D deficiency, recurrent endometriosis, history of migraines, generalized anxiety disorder, presents with elevated blood pressure. The patient was in the ER on 11/01/2022 because she missed her medications for 1 week and she got refilled, but her blood pressure was running high. In the ER, she was given labetalol and advised to follow the family doctor as she restarted her home medications.Again comes back today with worsening blood pressure, some blurred vision, some chest pain and question of some slurred speech.and seems she also received a news that one of family members .in the ER, she was given a dose of Ativan. Currently, blood pressure is better, slow to answer, but answering appropriately. Currently, denies any headache. Still has some dizziness and nausea has improved. Chest pain is improved. No cough, no fevers, no difficulty swallowing as per the patient.Patient denies any slurred speech. No shortness of breath, no abdominal pain. Normal bowel and bladder movements. She says she has some swelling in the legs, going on for the last 2-3 days. Admission Exam Per Admitting Provider GENERAL: The patient is of moderate build, not in acute distress. VITAL SIGNS: Temperature 36.3, pulse 67, respiratory rate 16, blood pressure when she came in, it was like 194/120, currently 127/80, oxygen 99% on room air. HEENT: Pupils equal, round and reactive to light. Oral mucosa moist. NECK: No JVD. No neck masses. CARDIOVASCULAR: S1 and S2 heard. Regular rate and rhythm. No murmur, no gall op. RESPIRATORY SYSTEM: Normal AP diameter. No accessory muscle use. No wheezing, no crackles. ABDOMEN: Soft, bowel sounds present, nontender, no distention. CENTRAL NERVOUS SYSTEM: Alert and oriented. Speech is clear. Insight is okay. Obeys simple commands. Power 5/5 in all extremities. EXTREMITIES: Pedal edema present. No erythema seen. Principal Diagnosis Hypertensive urgency, dizziness-resolved Discharge Exam Lying in bed comfortably Constitutional well developed, well nourished, + ill appearing and + obese Eyes PERRL, conjunctivae normal, anicteric sclerae ENMT external ear and nose normal, oropharynx normal Neck trachea midline, no thyromegaly Respiratory no respiratory distress Auscultation: lungs clear to auscultation bilaterally Cardiovascular Rate/Rhythm: regular rate and regular rhythm; not tachycardic Heart Sounds: normal S1 and normal S2; no murmur Extremities: + edema (Trace edema bilaterally) Gastrointestinal (Abdomen) Inspection/Auscultation: normal bowel sounds; abdomen not distended Percussion/Palpation: abdomen soft; abdomen nontender Neurologic normal touch/pain/proprioception and moves all extremities; no focal motor deficits Psychiatric A+Ox3, euthymic affect Lymphatic no cervical or axillary lymphadenopathy Discharge Data Allergies Allergy/AdvReac Type Severity Reaction Status Date / Time shrimp Allergy Severe "SWELL UP" Verified 11/03/22 01:41 morphine Allergy Intermediate HIVES Verified 11/03/22 01:41 mushroom Allergy Intermediate HIVES Verified 11/03/22 01:41 Consultations 11/03/22 02:37 ED Decision to Admit Stat Ordered Studies 11/03/22 00:26 CT angio head w con Stat CT angio neck with con Stat CT head/brain wo con Stat 11/03/22 05:47 MRI Brain [MR brain wo/w con] Urgent 11/03/22 08:04 US venous doppler [facility] Urgent Hospital Course (1) Hypertensive urgency: History of high blood pressure and was admitted with very high blood pressure with symptoms of headache, dizziness and chest pain Questionable strokelike symptoms-resolved Blood pressure has been normalized Relevant investigations including CTA of the head and neck, CT of the head and MRI of the head are unremarkable Symptomatically much improved but he still has some dizziness We will continue current management and ask for PT and OT evaluation prior to discharge tomorrow Blood pressure is reasonably controlled The dose of losartan has been increased Discharge home this afternoon (2) Chest pain: Has a chest pain Without any EKG changes Troponins are unremarkable Discussed with pipe cleaning machine operator and the consultations was canceled No chest pain and/or palpitation (3) Dizziness: Continues to have dizziness We will get PT and OT evaluation prior to discharge tomorrow Bilateral leg edema No evidence of DVT Total Time Total Time Spent Total Time Spent (In Minutes): 35 minutes Discharge Plan Discharge Items Patient Disposition: Home - Self-Care Reason For Visit: HTN URGENCY Discharge Diagnosis: Hypertensive urgency, dizziness-resolved Condition on Discharge: Good Activity: Resume your previous activity Non-emergency contact: Primary Care Provider Call non-emergency contact if: you have any medication questions and your symptoms worsen Follow-up/Referrals: Linnea Cortes MD [Primary Care Provider] - (Date & Time 11/07/2022 11:20 AM Provider Linnea Cortes MD Department Family Practice [facility] ) Diet: Heart Healthy Addtl Attending Provider Instructions: Please take precautions to avoid falls In your Irbesartan dose has been increased to 150 mg a day Please take your medications regularly And keep appointment with your healthcare provider Pending Studies at Discharge: No Stand-Alone Forms: My [facility] [place], Work/School Release, Smoking Cessation Medications and DC Order Prescriptions: New irbesartan 150 mg tablet 150 mg PO DAILY Qty: 30 0RF Continued chlorthalidone 25 mg tablet 25 mg PO DAILY Discontinued irbesartan 75 mg tablet 75 mg PO DAILY Discharge Orders: Discharge Order (Routine); Ordered 11/04/22 Ordered By: Shiva Cast Admission Data Admit Date/Time: 11/03/22 04:34 Attending Provider: Shiva Cast Admit Provider: Adrian Elkins Primary Care Provider: Linnea Cortes Other Providers: Adrian Elkins Other Interventions: Discharge Summary Assessment (RN) Last Done: 11/04/22 14:35
[2022-11-05] MEDS ORDERED: LOSARTAN POTASSIUM 50 MG TAB PO SCH (09:00)
== END 2022-11-04 15:37 | disposition home or self-care (01) | DRG 305 ==
LOC: ED 00:19 → 4W 04:34